=== PATIENT | male | born 1930 | race Caucasian/White ===

== ENCOUNTER → 2017-06-13 | Outpatient (CLI) | payer MEDICARE, OTHER ==
--- NOTE | 2017-06-13 14:36 | RADRPT ---
PROCEDURE: Right knee radiographs. CLINICAL INDICATION: Right knee pain. TECHNIQUE: Four views. Weight bearing. Frontal, lateral, oblique, and patellar view. COMPARISON: No prior studies are available for comparison. FINDINGS: There is no fracture or dislocation. Vascular calcifications are present consistent with atherosclerosis. There are degenerative changes with small osteophytes arising from all 3 joint compartment margins. There is no joint space narrowing or deformity. There is no lytic or blastic lesion. There is no radiopaque foreign body. IMPRESSION: 1. Mild degenerative change. 2. Atherosclerosis. 3. Otherwise normal images of the right knee. RPTAT: QQ .Dion Call MD, MD Date Time Electronically viewed and signed by .Dion Call MD, on 06/13/2017 14:36 .R/
--- NOTE | 2017-06-13 15:31 | RADRPT ---
PROCEDURE: XR Pelvis. CLINICAL INDICATION: Pelvic pain. TECHNIQUE: Single AP view of the pelvis. COMPARISON: No prior studies are available for comparison. FINDINGS: There is no fracture or dislocation. There is no lytic or blastic lesion. 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 Surgical clips are present in t he right inguinal region. The sacroiliac joints are grossly unremarkable. There is no radiopaque foreign body. IMPRESSION: 1. Mild degenerative changes of the hips. 2. Prior right inguinal surgery. RPTAT: QQ .Dion Call MD, MD Date Time Electronically viewed and signed by .Dion Call MD, MD on 06/13/2017 15:30 .R/
--- NOTE | 2017-06-13 15:51 | RADRPT ---
PROCEDURE: XR Right Hip. CLINICAL INDICATION: Right hip pain. TECHNIQUE: Single lateral view. COMPARISON: No prior studies are available for comparison. FINDINGS: There is no fracture or dislocation. The soft tissues are normal. There are degenerative changes with osteophytes noted. Surgical clips are present in the right ingu inal region. There is no lytic or blastic lesion. There is no radiopaque foreign body. IMPRESSION: 1. Mild degenerative change of the right hip. 2. Prior right inguinal surgery. RPTAT: QQ .Dion Call MD, MD Date Time Electronically viewed and signed by .Dion Call MD, MD on 06/13/2017 15:51 .R/
== END | disposition home or self-care (01) ==
LOC: HKI 10:40
PROVIDERS: ATTEND Orthopaedic Surgery
DX: M25.561 Pain in right knee (principal); M17.11 Unilateral primary osteoarthritis, right knee
CPT/HCPCS: 20610; 72170; 73501; 73564; G0463; J1030